=== PATIENT | female | born 1975 | race Caucasian/White ===

== ENCOUNTER → 2017-06-07 | Outpatient (CLI) | payer OTHER ==
--- NOTE | 2017-06-07 13:04 | US ---
HISTORY: Right breast lump Bilateral digital diagnostic mammography with CAD and right breast ultrasound. Comparison: None FINDINGS: Mammogram: Bilateral CC and MLO projections of the right and left breast were obtained. Heterogeneo usly dense fibroglandular tissue is seen to be present. No dominant suspicious architectural distor tion, mass or clustered microcalcifications can be observed to suggest malignancy. No skin thickeni ng or nipple retraction is appreciated. No pathological lymphadenopathy can be identified. Ultrasound: Multiple grayscale and color Doppler images of the right breast were obtained in the reg ion of interest at 7 o'clock where there is a horizontally smoothly marginated and well circumscribe d 6 mm hypoechoic nodule with posterior acoustical enhancement and no internal Doppler flow favored to represent a benign fibroadenoma versus less likely complex cyst with internal debris. No suspicio us cystic or solid nodules are seen to warrant biopsy at this time. IMPRESSION: Probably benign 7 o'clock right breast nodule. Six-month follow up bilateral mammograph y and right breast ultrasound are recommended to document stability and establish a baseline. ACR CATEGORY 3 - probably benign findings; short interval followup suggested. Diagnostic CAD was utilized and reviewed. * 0 (ZERO) - ASSESSMENT INCOMPLETE; ADDITIONAL IMAGING IS NEEDED. * 1/1 (ONE) - NEGATIVE. * 2/II (TWO) - BENIGN FINDINGS. * 3/III (THREE) - PROBABLY BENIGN FINDING; SHORT INTERVAL FOLLOW-UP SUGGESTED. * 4/IV (FOUR) - SUSPICIOUS ABNORMALITY; BIOPSY SHOULD BE CONSIDERED. * 5/V (FIVE) - HIGHLY SUSPICIOUS OF MALIGNANCY; BIOPSY SHOULD BE PERFORMED. A NEGATIVE X-RAY REPORT SHOULD NOT DELAY BIOPSY IF A DOMINANT OR CLINICALLY SUSPICIOUS MASS IS PRESENT; 4 TO 8 PERCENT OF CANCERS ARE NOT IDENTIFIED BY X-RAY. A NEG ATIVE REPORT MAY REINFORCE THE CLINICAL IMPRESSION. ADENOSIS AND DENSE BREASTS MAY OBSCURE AN UNDER LYING NEOPLASM. Reported By:
== END ==
LOC: RAD 11:19
PROVIDERS: ATTEND Nurse Practitioner Family
DX: N63 Unspecified lump in breast (principal)
CPT/HCPCS: 76642; 77066

== ENCOUNTER → 2017-10-14 | Outpatient (CLI) | payer OTHER ==
[2017-10-14 16:20] LABS: CRYPTOSPORIDIUM PARVUM ANTIGEN NEGATIVE (NEGATIVE); GIARDIA LAMBLIA ANTIGEN NEGATIVE (NEGATIVE)
[2017-10-14 17:51] LABS: ALANINE AMINOTRANSFERASE 15 Units/L (12-78); ALBUMIN 4.2 g/dL (3.4-5.0); ALKALINE PHOSPHATASE 66 Units/L (46-116); ASPARTATE AMINO TRANSFERASE 22 Units/L (15-37); BLOOD UREA NITROGEN 15 mg/dL (7-18); CALCIUM 8.9 mg/dL (8.5-10.1); CARBON DIOXIDE 26.4 mmol/L (21-32); CHLORIDE 104 mmol/L (98-107); CREATININE 0.68 mg/dL (0.55-1.02); SODIUM 141 mmol/L (136-145); TOTAL PROTEIN 7.5 g/dL (6.4-8.2); TSH (3RD GENERATION) 0.479 uIU/mL (0.358-3.74); eGFR BLACK RACES > 60 (>60); eGFR NON BLACK RACES > 60 (>60)
[2017-10-14 17:59] LABS: BASOPHILS % (AUTO) 0.5 % (0.2-1.0); EOSINOPHILS # (AUTO) 0.1 x10^3/uL (0.0-0.2); EOSINOPHILS % (AUTO) 0.9 % (0.9-2.9); HEMATOCRIT 40.3 % (36.0-47.0); HEMOGLOBIN 13.7 g/dL (12.0-16.0); LYMPHOCYTES # (AUTO) 2.1 X10^3/uL (1.3-2.9); LYMPHOCYTES % (AUTO) 23.4 % (21.0-51.0); MEAN CORPUSCULAR HEMOGLOBIN 30.3 pg (27.0-34.0); MEAN PLATELET VOLUME 8.9 fL (7.4-11.0); MONOCYTES # (AUTO) 0.5 x10^3/uL (0.3-0.8); MONOCYTES % (AUTO) 5.6 % (0.0-13.0); NEUTROPHILS # (AUTO) 6.3 x10^3/uL (2.2-4.8); NEUTROPHILS % (AUTO) 69.6 % (42.0-75.0); PLATELET COUNT 264 X10^3/uL (150.0-450.0); RED BLOOD COUNT 4.52 X10^6/uL (3.5-5.4); RED CELL DISTRIBUTION WIDTH 13.5 % (11.6-16.5); WHITE BLOOD COUNT 9.1 X10^3/uL (3.6-10.0)
[2017-10-14 18:48] LABS: ERYTHROCYTE SEDIMENTATION RATE 11 MM/HOUR (0-20)
[2017-10-16 22:01] LABS: HEPATITIS A ANTIBODY IGM Negative (Negative)
[2017-10-18 06:34] LABS: HEPATITIS B CORE IGM Negative (Negative); HEPATITIS B SURFACE ANTIGEN Negative (Negative)
== END ==
LOC: LAB 14:46
PROVIDERS: ATTEND Nurse Practitioner Family
DX: R45.86 Emotional lability (principal); R19.4 Change in bowel habit
CPT/HCPCS: 36415; 80053; 80074; 82270; 82670; 83001; 83002; 84443; 85025; 85652; 86140; 87045; 87328; 87329; 87336; 87338; 87427; 87493; 87899

== ENCOUNTER → 2017-10-14 | Outpatient (CLI) | payer OTHER | LOC: LAB 17:25 | PROVIDERS: ATTEND Nurse Practitioner Family | DX: R45.86 Emotional lability (principal); R19.4 Change in bowel habit ==

== ENCOUNTER 2019-09-29 09:51 | Observation (INO) ==
[2019-09-29 09:56] VITALS: BMI 23.3
[2019-09-29] MEDS ORDERED: NS 1000 ML 1,000 ML ONE ×2 (10:08→11:47)
[2019-09-29] MEDS ORDERED: NS 1000 ML 1,000 ML IV ONE (10:10)
[2019-09-29 10:16] LABS: BILIRUBIN,URINE NEGATIVE (NEGATIVE); BLOOD/HEMOGLOBIN,URINE 5+ (NEGATIVE); GLUCOSE, URINE NEGATIVE (NEGATIVE); KETONES,URINE NEGATIVE (NEGATIVE); LEUKOCYTE ESTERASE ,URINE 3+ (NEGATIVE); NITRITES,URINE POSITIVE (NEGATIVE); PROTEIN,URINE 3+ (NEGATIVE); UROBILINOGEN,URINE 3+ (NORMAL)
[2019-09-29 10:19] LABS: BASOPHILS # (AUTO) 0.1 X10^3/uL (0.0-0.1); BASOPHILS % (AUTO) 0.4 % (0.2-1.0); EOSINOPHILS # (AUTO) 0.1 x10^3/uL (0.0-0.2); EOSINOPHILS % (AUTO) 0.3 % (0.9-2.9); HEMATOCRIT 39.2 % (36.0-47.0); HEMOGLOBIN 13.5 g/dL (12.0-16.0); LYMPHOCYTES # (AUTO) 1.5 X10^3/uL (1.3-2.9); LYMPHOCYTES % (AUTO) 6.6 % (21.0-51.0); MEAN CORPUSCULAR HEMOGLOBIN 30.2 pg (27.0-34.0); MEAN CORPUSCULAR HGB CONC 34.5 g/dL (33.0-35.0); MEAN CORPUSCULAR VOLUME 87.7 fL (80.0-100.0); MEAN PLATELET VOLUME 8.5 fL (7.4-11.0); MONOCYTES # (AUTO) 0.7 x10^3/uL (0.3-0.8); MONOCYTES % (AUTO) 2.9 % (0.0-13.0); NEUTROPHILS % (AUTO) 89.8 % (42.0-75.0); PLATELET COUNT 224 X10^3/uL (150.0-450.0); RED BLOOD COUNT 4.47 X10^6/uL (3.5-5.4); RED CELL DISTRIBUTION WIDTH 12.7 % (11.6-16.5); WHITE BLOOD COUNT 23.4 X10^3/uL (3.6-10.0)
[2019-09-29 10:25] LABS: APPEARANCE,URINE CLOUDY (CLEAR); COLOR,URINE DARK YELLOW (YELLOW)
[2019-09-29 10:26] LABS: BACTERIA,URINE 4+ /HPF (NEGATIVE); SQUAMOUS EPITHELIAL CELL,UR FEW /HPF (NEGATIVE)
[2019-09-29 10:31] LABS: ALANINE AMINOTRANSFERASE 105 Units/L (12-78); ALBUMIN 2.8 g/dL (3.4-5.0); ALKALINE PHOSPHATASE 145 Units/L (46-116); ASPARTATE AMINO TRANSFERASE 33 Units/L (15-37); BLOOD UREA NITROGEN 15 mg/dL (7-18); CALCIUM 8.9 mg/dL (8.5-10.1); CARBON DIOXIDE 32.6 mmol/L (21-32); CHLORIDE 99 mmol/L (98-107); COR CA(FOR HYPOALB) 9.9 mg/dL (8.5-10.1); CREATININE 0.95 mg/dL (0.55-1.02); SODIUM 139 mmol/L (136-145); TOTAL PROTEIN 7.4 g/dL (6.4-8.2); eGFR NON BLACK RACES > 60 (>60)
[2019-09-29 10:40] LABS: BAND NEUTROPHILS % 3 % (0-10); PLATELET MORPHOLOGY COMMENT NORMAL (NORMAL)
[2019-09-29] MEDS ORDERED: LEVAQUIN PREMIX IV 500 MG 500 MG/100 ML BAG IV ONE ×2 (11:19→12:56)
[2019-09-29] MEDS ORDERED: FLAGYL IV PREMIX 500 MG BAG 500 MG/100 ML BAG IV ONE ×2 (11:19→11:41)
--- NOTE | 2019-09-29 11:37 | ED.ABDFE ---
HPI Time Seen Time Seen by Provider: 09/29/19 10:30 PCP Primary Care Physician: ERNIE CREWS Complaint Doctors Chief Complaint Comments: A 44 y/o female presenting with c/o diffuse abdominal pain x about 6 days. It initially was localized to the epigastrium/RUQ area. She now hurts in her RLQ and suprapubic areas as well. She has nausea, vomiting and fever. There is nothing specifically that worsens the pain. She was in [facility] at onset of pain, on her was home back to [place], she had stopped in the ED at the hospital in [place], [place]. The work-up there revealed some cholelithiasis on the U/S. Her WBC in the serum was 14.6. She states that she was the local surgeon in town here yesterday. Chief Complaint:: PT. C/O ABDOMINAL PAIN WHICH BEGAN WEDNESDAY. PT. HAS HAD HIGH FEVERS, N/V. PT. SEEN DR. CASAS IN THE OFFICE YESTERDAY WELL PCP. PT'S PAIN IS TO THE RIGHT LOWE ABDOMEN. Reviewed Nurses Notes Review: Yes Source History Provided: Patient Mode of arrival Mode of Arrival: Ambulatory Timing Onset of Chief Complaint: 09/23/19 Came on: Gradually Duration How lon Duration: Days Location Location: RUQ, RLQ, Epigastric and Suprapubic Severity Severity: Moderate Quality Quality: Generalized Context History of: Abdominal surgery Associated signs and symptoms Associated Signs and Symptoms: Nausea and Vomiting PMH PMH Past Medical History: No Past Surgical History: Yes Surgical History: Ectopic , [employer]ING [employer]ERK Surgery and Hysterectomy Past Surgical History Comment: ACL RECONSTRUCTION TO LEFT KNEE, TUBAL LIGATION Family History History of Family Medical Conditions: No Social History Does patient currently use any type of tobacco product: Yes Have you used tobacco products in the last 12 months: Yes Type of Tobacco Use: Cigarettes Does any household member use tobacco: Yes Alcohol Use: Rarely Do you use any recreational Drugs:: No Lives With: Family Lives Where: Home infectious screening In the last 2 months have you had wt loss of >10#?: NO Have you had fever, night sweats or hemotysis?: No Have you traveled outside the country in the last 6 months?: No Isolation: Standard ROS Review of Systems Constitutional: Fever Eyes: No Symptoms Reported ENTM: No Symptoms Reported Respiratoy: No Symptoms Reported Cardiovascular: No Symptoms Reported Gastrointestinal/Abdominal: Abdominal Pain, Nausea and Vomiting Genitourinary: No Symptoms Reported Neurological: No Symptoms Reported Musculoskeletal: No Symptoms Reported Integumentary: No Symptoms Reported Hematologic/Lymphatic: No Symptoms Reported Endocrine: No Symptoms Reported Psychiatric: No Symptoms Reported PE Vital Signs Vitals: Temperature 98.5 F Pulse Rate [Left Brachial] 85 Pulse Rate 104 Respiratory Rate 16 Blood Pressure [Left Arm] 104/57 Blood Pressure 98/59 O2 Sat by Pulse Oximetry 99 General Limitations: No Limitations General Appearance: Alert and In No Apparent Distress Head Head Exam: Normal Inspection, Atraumatic and Normocephalic Eyes Eye exam: Normal Appearance, PERRL and EOMI ENT ENT Exam: Normal Oropharynx and Mucous Membranes Moist Neck Neck Exam: Normal Inspection, Full ROM and Trachea Midline Chest Chest Inspection: Normal Inspection and Symmetric Chest Wall Rise Respiratory Respiratory Exam: Normal Lung Sounds Bilat Cardiovascular Cardiovascular Exam: Regular Rate, Normal Rhythm, Normal Heart Sounds, +S1 and +S2 Abdominal Exam Abdominal Exam: Normal Inspection, Normal Bowel Sounds, Soft and Tenderness; negative Distention, Guarding, Rebound, Rigidity, Dimnished Bowel Sounds, Hyperactive Bowel Sounds, Hypoactive Bowel Sounds, Organomegaly, Trauma, Incision, Ascites, Mass, Bruit, Pulsatile Mass and Hernia Abdominal Tenderness: RUQ, RLQ and Epigastrium Rectal Rectal Exam: Deferred Back Back Exam: Normal Inspection and Full ROM Extremeties Extremities Exam: Normal Inspection and Full ROM External Exam: Female: Deferred Neurologic Neurological Exam: Alert and Oriented X3 Psychiatric Psychiatric Exam: Normal Affect and Normal Mood Skin Skin Exam: Dry and Normal Color COURSE Reevaluation 1st: Improved Consultation Consultation Comments: Dr. Galvan (Surgeon) states he will take the pt. to the OR in a couple of hours for Cholecystectomy. Education/Counseling Education/Counseling: Patient, Family, Education and Counseling Educated On: Treatment, Diagnosis, Prognosis and Needs for Follow Up ROR Labs Reviewed Laboratory Results Reviewed?: Yes Result Diagrams: 09/29/19 10:12 09/29/19 10:12 Laboratory: WBC 23.4 X10^3/uL (3.6-10.0) H 09/29/19 10:12 RBC 4.47 X10^6/uL (3.5-5.4) 09/29/19 10:12 Hgb 13.5 g/dL (12.0-16.0) 09/29/19 10:12 Hct 39.2 % (36.0-47.0) 09/29/19 10:12 MCV 87.7 fL (80.0-100.0) 09/29/19 10:12 MCH 30.2 pg (27.0-34.0) 09/29/19 10:12 MCHC 34.5 g/dL (33.0-35.0) 09/29/19 10:12 RDW 12.7 % (11.6-16.5) 09/29/19 10:12 Plt Count 224 X10^3/uL (150.0-450.0) 09/29/19 10:12 Plt Count Comment Adequate (ADEQUATE) 09/29/19 10:12 MPV 8.5 fL (7.4-11.0) 09/29/19 10:12 Neut % (Auto) 89.8 % (42.0-75.0) H 09/29/19 10:12 Lymph % (Auto) 6.6 % (21.0-51.0) L 09/29/19 10:12 [place] % (Auto) 2.9 % (0.0-13.0) 09/29/19 10:12 Eos % (Auto) 0.3 % (0.9-2.9) L 09/29/19 10:12 Baso % (Auto) 0.4 % (0.2-1.0) 09/29/19 10:12 Neut # (Auto) 21.0 x10^3/uL (2.2-4.8) H 09/29/19 10:12 Lymph # (Auto) 1.5 X10^3/uL (1.3-2.9) 09/29/19 10:12 [place] # (Auto) 0.7 x10^3/uL (0.3-0.8) 09/29/19 10:12 Eos # (Auto) 0.1 x10^3/uL (0.0-0.2) 09/29/19 10:12 Baso # (Auto) 0.1 X10^3/uL (0.0-0.1) 09/29/19 10:12 Absolute Nucleated RBC 0.0 /100WBC 09/29/19 10:12 Total Counted 100 09/29/19 10:12 Neutrophils % (Manual) 88 % (39-76) H 09/29/19 10:12 Band Neutrophils % 3 % (0-10) 09/29/19 10:12 Lymphocytes % (Manual) 8 % (13-43) L 09/29/19 10:12 Monocytes % (Manual) 1 % (4-9) L 09/29/19 10:12 Plt Morphology Comment Normal (NORMAL) 09/29/19 10:12 RBC Morphology Normal (NORMAL) 09/29/19 10:12 Sodium 139 mmol/L (136-145) 09/29/19 10:12 Corrected Sodium TNP 09/29/19 10:12 Potassium 3.2 mmol/L (3.5-5.1) L 09/29/19 10:12 Chloride 99 mmol/L (98-107) 09/29/19 10:12 Carbon Dioxide 32.6 mmol/L (21-32) H 09/29/19 10:12 BUN 15 mg/dL (7-18) 09/29/19 10:12 Creatinine 0.95 mg/dL (0.55-1.02) 09/29/19 10:12 Est GFR (MDRD) Af Amer > 60 (>60) 09/29/19 10:12 Est GFR (MDRD) Non-Af > 60 (>60) 09/29/19 10:12 Glucose 93 mg/dL (65-99) 09/29/19 10:12 Calcium 8.9 mg/dL (8.5-10.1) 09/29/19 10:12 Corrected Calcium 9.9 mg/dL (8.5-10.1) 09/29/19 10:12 Total Bilirubin 0.70 mg/dL (0.2-1.0) 09/29/19 10:12 AST 33 Units/L (15-37) 09/29/19 10:12 ALT 105 Units/L (12-78) H 09/29/19 10:12 Alkaline Phosphatase 145 Units/L (46-116) H 09/29/19 10:12 Total Protein 7.4 g/dL (6.4-8.2) 09/29/19 10:12 Albumin 2.8 g/dL (3.4-5.0) L 09/29/19 10:12 Globulin 4.6 g/dL (2.5-4.5) H 09/29/19 10:12 Albumin/Globulin Ratio 0.6 Ratio (1.1-2.1) L 09/29/19 10:12 Specimen Type Clean catch urine 09/29/19 10:13 Urine Color Dark yellow (YELLOW) 09/29/19 10:13 Urine Appearance Cloudy (CLEAR) 09/29/19 10:13 Urine pH 6.0 (5.0 - 8.0) 09/29/19 10:13 Ur Specific [place] 1.010 (1.000-1.030) 09/29/19 10:13 Urine Protein 3+ (NEGATIVE) 09/29/19 10:13 Urine Glucose (UA) Negative (NEGATIVE) 09/29/19 10:13 Urine Ketones Negative (NEGATIVE) 09/29/19 10:13 Urine Occult Blood 5+ (NEGATIVE) 09/29/19 10:13 Urine Nitrite Positive (NEGATIVE) 09/29/19 10:13 Urine Bilirubin Negative (NEGATIVE) 09/29/19 10:13 Urine Urobilinogen 3+ (NORMAL) 09/29/19 10:13 Ur Leukocyte Esterase 3+ (NEGATIVE) 09/29/19 10:13 Urine RBC 10-20 /HPF (0-3) A 09/29/19 10:13 Urine WBC Tntc /HPF (0-5) A 09/29/19 10:13 Ur Squamous Epith Cells Few /HPF (NEGATIVE) 09/29/19 10:13 Urine Bacteria 4+ /HPF (NEGATIVE) 09/29/19 10:13 Ur Culture Indicated? Yes/culture set up 09/29/19 10:13 Other Results Comments: I've looked out the labs and diagnostic testing test reports that were sent over from [facility]. Opioid Opioid Risk Tool Age ([place] box if 16-45): Yes History of Preadolescent Sexual Abuse: No Total: 1 Total Score Risk Category: Low Risk Copyright: Emil BEE predicting aberrant behaviors Management Risks, benefits, and alternatives of opioids discussed: Yes Prescription drug monitoring program results: PDMP reviewed and no concerns identified Diagnosis Discharge Problem: Cholelithiasis Qualifiers: Cholelithiasis location: gallbladder Cholecystitis presence: without cholecystitis Biliary obstruction: without biliary obstruction Qualified Code(s): K80.20 - Calculus of gallbladder without cholecystitis without obstru ction UTI (urinary tract infection) Qualifiers: Urinary tract infection type: acute cystitis Hematuria presence: with hematuria Qualified Code(s): N30.01 - Acute cystitis with hematuria Leukocytosis Qualifiers: Leukocytosis type: unspecified Qualified Code(s): D72.829 - Elevated white blood cell count, unspecified
[2019-09-29] MEDS ORDERED: NS 100 ML IV 100 ML IV ONE (11:41)
[2019-09-29] MEDS ORDERED: K-LYTE EFFERVESCENT PO ONE (11:42)
[2019-09-29] MEDS: NS 1000 ML 1,000 ML IV SCH ×2 (11:50→20:35)
[2019-09-29] MEDS ORDERED: FENTANYL INJ 250 mcg ONE (12:57)
[2019-09-29] MEDS ORDERED: [UNRECOGNIZED DRUG - SUPPLY] SCH (13:26)
[2019-09-29] MEDS ORDERED: FENTANYL INJ 100 mcg ONE (14:17)
[2019-09-29] MEDS ORDERED: DILAUDID INJ ONE (14:17)
[2019-09-29] MEDS ORDERED: BACTROBAN TOPICAL OINT ONE (15:30)
[2019-09-29] MEDS ORDERED: REGLAN INJ 10 MG VIAL IVP PRN (15:50)
[2019-09-29] MEDS ORDERED: PHENERGAN INJ 25 MG IM PRN (15:50)
[2019-09-29] MEDS ORDERED: ZOFRAN INJ 4 MG VIAL IVP PRN (15:50)
[2019-09-29] MEDS ORDERED: DILAUDID INJ IVP PRN (15:50)
[2019-09-29] MEDS ORDERED: BENADRYL INJ 50 MG VIAL IVP PRN (15:50)
--- NOTE | 2019-09-29 15:53 | OR.IMMED ---
Immediate Post-Op Note - Immediate Post-Op Note Pre-Op Diagnosis: acute cholecystitis. Post-Op Diagnosis: acute calculus cholecystitis with hydrops of the GB . dense adhesions around the GB. liver and abdominal wall . Procedure: diagnostic lap . lysis of adhesions , lap brooke and drainage . Surgeon/Jeweler Apprentice: Marti Specimens Removed: GB with contents.. Drains: Raji Hastings Complications: none . Condition: Stable (IVF and ATB , clear liquid ..)
[2019-09-29] MEDS ORDERED: POTASSIUM CHL 40 MEQ/NS 0.45% 500 ML IV PRN (17:37)
[2019-09-29] MEDS ORDERED: K-DUR TAB 20 MEQ PO PRN (17:37)
[2019-09-29] MEDS ORDERED: POTASSIUM CHL 60 MEQ/NS 0.45% 500 ML IV PRN (17:37)
[2019-09-29] MEDS ORDERED: K-RIDER 10 MEQ/NS 100 ML 10 MEQ/100 ML BAG IV PRN (17:37)
[2019-09-29] MEDS ORDERED: KLOR-CON PO PRN (17:37)
[2019-09-29] MEDS ORDERED: MICRO K EXTEN CAP 10 MEQ PO PRN (17:37)
[2019-09-29] MEDS ORDERED: POTASSIUM CHLORIDE LIQ 20 MEQ UDC PO PRN (17:37)
[2019-09-29] MEDS ORDERED: K-DUR TAB 20 MEQ PO ONE (17:47)
[2019-09-30] MEDS: NS 1000 ML 1,000 ML IV SCH ×3 (03:03→12:22)
[2019-09-30 06:23] LABS: BASOPHILS % (AUTO) 0.1 % (0.2-1.0); EOSINOPHILS # (AUTO) 0.1 x10^3/uL (0.0-0.2); EOSINOPHILS % (AUTO) 0.4 % (0.9-2.9); HEMATOCRIT 29.4 % (36.0-47.0); HEMOGLOBIN 10.2 g/dL (12.0-16.0); LYMPHOCYTES # (AUTO) 1.5 X10^3/uL (1.3-2.9); LYMPHOCYTES % (AUTO) 11.6 % (21.0-51.0); MEAN CORPUSCULAR HEMOGLOBIN 30.8 pg (27.0-34.0); MEAN CORPUSCULAR HGB CONC 34.9 g/dL (33.0-35.0); MEAN CORPUSCULAR VOLUME 88.4 fL (80.0-100.0); MEAN PLATELET VOLUME 8.7 fL (7.4-11.0); MONOCYTES # (AUTO) 0.5 x10^3/uL (0.3-0.8); MONOCYTES % (AUTO) 4.1 % (0.0-13.0); NEUTROPHILS % (AUTO) 83.8 % (42.0-75.0); PLATELET COUNT 191 X10^3/uL (150.0-450.0); RED BLOOD COUNT 3.32 X10^6/uL (3.5-5.4); RED CELL DISTRIBUTION WIDTH 12.7 % (11.6-16.5); WHITE BLOOD COUNT 13.2 X10^3/uL (3.6-10.0)
[2019-09-30 06:34] LABS: ALANINE AMINOTRANSFERASE 66 Units/L (12-78); ALBUMIN 1.9 g/dL (3.4-5.0); ALKALINE PHOSPHATASE 112 Units/L (46-116); ASPARTATE AMINO TRANSFERASE 29 Units/L (15-37); BLOOD UREA NITROGEN 8 mg/dL (7-18); CALCIUM 7.5 mg/dL (8.5-10.1); CARBON DIOXIDE 25.5 mmol/L (21-32); CHLORIDE 105 mmol/L (98-107); COR CA(FOR HYPOALB) 9.2 mg/dL (8.5-10.1); CREATININE 0.62 mg/dL (0.55-1.02); SODIUM 139 mmol/L (136-145); TOTAL PROTEIN 5.5 g/dL (6.4-8.2); eGFR NON BLACK RACES > 60 (>60)
[2019-09-30] MEDS ORDERED: DILAUDID INJ IVP PRN (09:21)
[2019-09-30] MEDS ORDERED: DILAUDID INJ ONE (10:04)
[2019-09-30] MEDS ORDERED: NEOSTIGMINE INJ ONE (10:37)
[2019-09-30] MEDS ORDERED: ZOFRAN INJ 4 MG VIAL ONE (10:37)
[2019-09-30] MEDS ORDERED: VERSED ONE (10:37)
[2019-09-30] MEDS ORDERED: DIPRIVAN VIAL ONE (10:37)
[2019-09-30] MEDS ORDERED: NORCURON INJ 10 MG VIAL ONE (10:37)
[2019-09-30] MEDS ORDERED: XYLOCAINE 2 % (PLAIN) ONE (10:37)
[2019-09-30] MEDS ORDERED: ROBINUL ONE (10:37)
[2019-09-30] MEDS ORDERED: TORADOL 30 MG VIAL ONE (10:37)
[2019-09-30] MEDS ORDERED: LTA KIT LIDOCAINE 4% ONE (10:37)
[2019-09-30] MEDS ORDERED: QUELICIN (OR ANECTINE) ONE (10:37)
[2019-09-30] MEDS ORDERED: SUPRANE ONE (10:37)
[2019-09-30] MEDS ORDERED: EPHEDRINE SULFATE INJ ONE (10:37)
[2019-09-30 12:22] VITALS: BP 120/59
== END 2019-09-30 16:10 | disposition home or self-care (01) ==
LOC: ER 09:51 → OBS 09:51 → MED/SURG 13:14
PROVIDERS: ADMIT Surgery; ATTEND Surgery
CPT/HCPCS: 36415; 80053; 80307; 81001; 83735; 84132; 85025; 87086; 87088; 87186; 96360; 96361; 96365; 96374; 96375; 99284; A4222; S0030; G0378; G0434; J0330; J1170; J1885; J1956; J2250; J2405; J2704; J2710; J3010; J3490; J7030; J7050